=== PATIENT | male | born 1940 | race Caucasian/White ===

== ENCOUNTER 2018-12-29 08:24 | Day surgery (SDC) | payer MEDICARE, BC ==
[~2018-12-29] VITALS: Ht 182.9 cm; Wt 76.5 kg
[~2018-12-29 08:24] MED LIST: ASPI325 PO; ATOR40TA PO; Adult Low Dose81 MG PO; B Complex #11 EACH PO; Bactrim 400-801 EACH PO; CALCIUM + D SO1 EACH PO; CEPH500 PO; CLOP75 PO; CO Q-10 100 MG1 EACH PO; DOCU100 PO; DUTA.5 PO; FINA5 PO; Ferrous Sulfat325 M2 PO; LEVSOD100 PO; LEVSOD125 PO; Lisinopril2.5 MG PO; METF500C PO; METO25ER PO; MULTIVITAMIN W PO; OXYACE5T PO; PANT40 PO; SULTRIDS PO; TADA10TA; UBID100 PO; VITAMIN B12-FO1 EACH PO
[2018-12-29] MEDS ORDERED: B-121000 MC1 PO (08:52)
[2018-12-29] MEDS ORDERED: PROBIOTIC 15 B1 EACH PO (08:54)
[2018-12-29] MEDS ORDERED: ASPI81CH PO (08:56)
--- NOTE | 2018-12-29 09:08 | NUR ---
Ambulatory in Day SurgeryPatient states colon prep results clear. History, Chart, Medications and Allergies reviewed before start of procedure.Lungs clear T/O to Auscultation. Patient confirms NPO status and agrees with scheduled surgery. Patient States Post-Procedure ride home has been arranged.
--- NOTE | 2018-12-29 10:06 | NUR ---
12/29/18 1006 ColinMatheus PATIENT DETERMINED TO BE ASA APPROPRIATE FOR PROPOFOL SEDATION PRIOR TO START OF PROCEDURE BY 3-LEAD EKG REVIEWED WITH PHYSICIAN PRIOR TO START OF PROCEDURE.Patient to ENDO 1History, Chart, Medications and Allergies reviewed before start of procedure.MONITOR INTACT WITH CONTINUOUS PULSE OXIMETRY AND INTERMITTENT BP.O2 VIA N/C INTACT THROUGHOUT SEDATION/PROCEDURE.
--- NOTE | 2018-12-29 11:15 | NUR ---
Discharge instructions reviewed with patient. Patient verbalizes understanding. Copy given to patient to take home. Discharged via wheelchair to private car for ride home.
== END 2018-12-29 11:15 | disposition home or self-care (01) ==
LOC: ORSCMMR 08:24 → ORD 09:30 → ORSCMMR 09:30
PROVIDERS: Internal Medicine Gastroenterology
PROC: 0DBK8ZX Excision of Ascending Colon, Via Natural or Artificial Opening Endoscopic, Diagnostic (ICD-10-PCS; principal; 2018-12-29 09:30)
DX: Z12.11 Encounter for screening for malignant neoplasm of colon (principal); Z86.010 Personal history of colon polyps; D12.2 Benign neoplasm of ascending colon; E11.9 Type 2 diabetes mellitus without complications; E03.9 Hypothyroidism, unspecified; I25.10 Atherosclerotic heart disease of native coronary artery without angina pectoris; I25.2 Old myocardial infarction; Z79.899 Other long term (current) drug therapy; Z79.82 Long term (current) use of aspirin
CPT/HCPCS: 82947; 88305; J2704; J7120

== ENCOUNTER → 2025-02-06 | Outpatient (CLI) | payer MEDICARE, BC ==
[~2025-02-06] MED LIST changes: +ASPI81CH PO; +B-121000 MC1 PO; +PROBIOTIC 15 B1 EACH PO
== END ==
LOC: LAB SHORT 10:15 → LAB 10:15
DX: E11.69 Type 2 diabetes mellitus with other specified complication (principal); E78.2 Mixed hyperlipidemia; I25.10 Atherosclerotic heart disease of native coronary artery without angina pectoris
CPT/HCPCS: 82043